=== PATIENT | female | born 1990 | race Native Hawaiian/Other Pacific Islander ===

== ENCOUNTER 2021-05-01 16:13 | Outpatient (CLI) | payer OTHER | END 2021-05-01 22:39 | disposition home or self-care (01) | LOC: CT 16:13 → EDBD 16:13 → CT 22:39 | PROVIDERS: ATTEND Internal Medicine | DX: R31.9 Hematuria, unspecified (principal); R30.0 Dysuria | CPT/HCPCS: 87086; 87088 ==